=== PATIENT | female | born 1995 | race American Indian/Alaskan Native ===

== ENCOUNTER 2019-06-21 11:42 | Emergency (ER) | payer MEDICAID, OTHER ==
[2019-06-21 12:19] VITALS: BP 111/49
[2019-06-21] MEDS ORDERED: TETANUS,DIPH,PERTUSS(ACELL) VACCINE 0.5 ML SYRINGE IM ONE (12:20)
--- NOTE | 2019-06-21 12:24 | Emergency Department Report ---
{null, ED Laceration HPI - HPI Chief Complaint: Wound/Laceration Stated Complaint: LT HAND LAC/WORK Time Seen by Provider: 06/21/19 12:15 Occurred When: Today Location: Upper Extremity Severity: mild Tetanus Status: Not up to Date Laceration Symptoms: Yes Pain, No Foreign Body Sensation, No Numbness, No Weakness Other History: This is a 24-year-old female nontoxic, well in appearance with no signs of distress presents to the ED for laceration to left hand. Stated blood is under control. Denies any decreased ROM. Patient denies any fever, chills, headache, nausea, vomiting, chest pain or shortness of breathe. Denies any other symptoms or complaints. Denies any allergies or PMH. Denies being UTD with tetanus. ED Review of Systems ROS: Stated complaint: LT HAND LAC/WORK Other details as noted in HPI Constitutional: denies: chills, fever Eyes: denies: eye pain, eye discharge, vision change ENT: denies: ear pain, throat pain Respiratory: denies: cough, shortness of breath, wheezing Cardiovascular: denies: chest pain, palpitations Endocrine: no symptoms reported Gastrointestinal: denies: abdominal pain, nausea, diarrhea Genitourinary: denies: urgency, dysuria, discharge Musculoskeletal: denies: back pain, joint swelling, arthralgia Skin: denies: rash, lesions Neurological: denies: headache, weakness, paresthesias Psychiatric: denies: anxiety, depression Hematological/Lymphatic: denies: easy bleeding, easy bruising ED Past Medical Hx - Past Medical History Previous Medical History?: No Additional medical history: transfusion with - Surgical History Past Surgical History?: Yes Additional Surgical History: x2 - Social History Smoking Status: Never Smoker Substance Use Type: None - Medications Home Medications: Home Medications Medication Instructions Recorded Confirmed Last Taken Type Ketorolac [Toradol] 10 mg PO Q6H PRN #20 tablet 03/27/18 Unknown Rx methOCARBAMOL [Robaxin TAB] 500 mg PO Q6H #20 tablet 03/27/18 Unknown Rx Laceration Physical Exam - Exam General: Vital signs noted. No distress. Alert and acting appropriately. Wound Length (cm): 1 Laceration Location: Upper Extremity Laceration Exam: Yes Normal Distal CMS, No Foreign Body, No Exposed Tendon, Vessel, or Nerve, No Tendon Injury ED Course Vital Signs 06/21/19 12:17 Temperature 98.8 F Pulse Rate 77 Respiratory 20 Rate Blood Pressure 111/49 O2 Sat by Pulse 100 Oximetry - Reevaluation(s) Reevaluation #1: 06/21/19 12:24 Patient is speaking in full sentences with no signs of distress noted. - Laceration /Wound Repair Left Hand Wound Location: upper extremity Wound Length (cm): 1 Wound's Depth, Shape: superficial Wound Explored: clean Irrigated w/ Saline (ccs): 40 Betadine Prep?: Yes Wound Repaired With: Dermabond Layer Closure?: No Sterile Dressing Applied?: Yes Progress: Under sterile field, I used betadine to clean the area. I then used Dermond to proximate the laceration. Sterile dressing applied. Patient tolerated well. Bleeding under control. ED Medical Decision Making - Medical Decision Making 24-year-old female that presents with lac. Patient is stable and was examined by me. Dermabond applied. Patient tolerated well. Educated on care. Patient was instructed to Follow-up with a primary care doctor in 3-5 days or if symptoms worsen and continue return to emergency room as soon as possible. At time of discharge, the patient does not seem toxic or ill in appearance. No acute signs of distress noted. Patient agrees to discharge treatment plan of care. No further questions noted by the patient. Critical care attestation.: If time is entered above; I have spent that time in minutes in the direct care of this critically ill patient, excluding procedure time. ED Disposition Clinical Impression: Laceration Disposition: DC-01 TO HOME OR SELFCARE Is pt being admited?: No Does the pt Need Aspirin: No Condition: Stable Instructions: Laceration (ED), Skin Adhesive Care (ED) Additional Instructions: Follow-up with a primary care doctor in 3-5 days or if symptoms worsen and continue return to the emergency department as soon as possible. Referrals: PRIMARY MD NATTY [Referring] - 3-5 Days REGGIE TRACY MD [Staff Physician] - 3-5 Days [facility] [Outside] - 3-5 Days Forms: Work/School Release Form(ED) }
== END 2019-06-21 12:45 | disposition home or self-care (01) ==
LOC: ED 11:42
DX: S61.412A Laceration without foreign body of left hand, initial encounter (principal); Z79.899 Other long term (current) drug therapy; X58.XXXA Exposure to other specified factors, initial encounter; Y93.89 Activity, other specified; Y92.89 Other specified places as the place of occurrence of the external cause; Y99.8 Other external cause status
CPT/HCPCS: 90471; 90715

== ENCOUNTER 2021-01-05 11:31 | Emergency (ER) | payer MEDICAID ==
[2021-01-05 12:20] LABS: Hematocrit 35.2 % (30.3-42.9); Hemoglobin 12.6 gm/dl (10.1-14.3); Mean Corpuscular HGB Conc 36 % (30-34); Mean Corpuscular Volume 84 fl (79-97); Platelet Count 426 K/mm3 (140-440); Red Blood Count 4.19 M/mm3 (3.65-5.03); Red Cell Distribution Width 13.4 % (13.2-15.2)
[2021-01-05] MEDS ORDERED: SODIUM CHLORIDE 0.9% 1000 ML 1,000 ML IV ONE (12:31)
[2021-01-05] MEDS ORDERED: diphenhydrAMINE 50 MG/ML VIAL IV STA (12:31)
[2021-01-05] MEDS ORDERED: METOCLOPRAMIDE 10 MG/2 ML INJ IV STA (12:31)
--- NOTE | 2021-01-05 12:32 | Emergency Department Report ---
ED N/V/D HPI - General Chief complaint: Abdominal Pain Stated complaint: 17WKS PREG,ABDOM PAIN Time Seen by Provider: 01/05/21 12:28 Source: patient Mode of arrival: Wheelchair Limitations: No Limitations - History of Present Illness Initial comments: 25-year-old 17 weeks female presents emergency department complaint nausea and vomiting and a repetitive fashion not not responsive to her Phenergan tablets which she has previously had 6 for evaluation treatment options emerge department she reports no vaginal bleeding no no vaginal discharge does have a vague ache to the epigastric region that does radiate throughout her entire abdomen ports no fever, chills, sweats, hemoptysis, hematemesis, hematochezia 25-year-old 17-week MD complaint: nausea, vomiting -: Gradual Associated Abdominal Pain: Yes Location: diffuse (crampy pain ), epigastric (then radiates through out the abdomen) Radiation: none Severity: mild Quality: dull Consistency: constant Worsens with: none Associated Symptoms: nausea/vomiting - Related Data Previous Rx's Medication Instructions Recorded Last Taken Type Ketorolac [Toradol] 10 mg PO Q6H PRN #20 tablet 03/27/18 Unknown Rx methOCARBAMOL [Robaxin TAB] 500 mg PO Q6H #20 tablet 03/27/18 Unknown Rx Doxylamine Succinate/Vit B6 1 each PO TID #30 tablet. 01/05/21 Unknown Rx [Stewart Darling 10-10 mg Tablet] Allergies Allergy/AdvReac Type Severity Reaction Status Date / Time No Known Allergies Allergy Unverified 03/27/18 17:05 ED Review of Systems ROS: Stated complaint: 17WKS PREG,ABDOM PAIN Other details as noted in HPI Comment: All other systems reviewed and negative ED Past Medical Hx - Past Medical History Previous Medical History?: Yes Hx Asthma: Yes Additional medical history: transfusion with - Surgical History Past Surgical History?: Yes Additional Surgical History: x2 - Social History Smoking Status: Never Smoker Substance Use Type: None - Medications Home Medications: Home Medications Medication Instructions Recorded Confirmed Last Taken Type Ketorolac [Toradol] 10 mg PO Q6H PRN #20 tablet 03/27/18 Unknown Rx methOCARBAMOL [Robaxin TAB] 500 mg PO Q6H #20 tablet 03/27/18 Unknown Rx Doxylamine Succinate/Vit B6 1 each PO TID #30 tablet. 01/05/21 Unknown Rx [Stewart Darling 10-10 mg Tablet] ED Physical Exam - General Limitations: No Limitations General appearance: alert, in no apparent distress - Head Head exam: Present: atraumatic, normocephalic - Eye Eye exam: Present: normal appearance, PERRL, EOMI - ENT ENT exam: Present: mucous membranes moist - Neck Neck exam: Present: normal inspection - Respiratory Respiratory exam: Present: normal lung sounds bilaterally. Absent: respiratory distress - Cardiovascular Cardiovascular Exam: Present: regular rate, normal rhythm. Absent: systolic murmur, diastolic murmur, rubs, gallop - GI/Abdominal GI/Abdominal exam: Present: soft, tenderness (Mild discomfort to the epigastric region with palpation. Attempting), normal bowel sounds - Extremities Exam Extremities exam: Present: normal inspection - Back Exam Back exam: Present: normal inspection - Neurological Exam Neurological exam: Present: alert, oriented X3 - Psychiatric Psychiatric exam: Present: normal affect, normal mood - Skin Skin exam: Present: warm, dry, intact, normal color. Absent: rash ED Medical Decision Making - Lab Data Result diagrams: 01/05/21 12:10 01/05/21 12:10 - Medical Decision Making 25-year-old 17-week female presents emergency department complaining of nausea and vomiting without diarrhea. The patient is overall well-appearing and suspected to have hyperemesis gravidarum. Given the history of examination he does not appear to be an emergency cause for the symptoms such as small bowel obstruction, coronary syndrome, bowel ischemia, DKA, pancreatitis, appendicitis, acute abdomen no emergent problem. Patient was treated with Reglan, Benadryl, fluids as well as vitamin D6. After treatment patient is feeling much better tolerating p.o. fluids shows no signs of dehydration Critical care attestation.: If time is entered above; I have spent that time in minutes in the direct care of this critically ill patient, excluding procedure time. ED Disposition Clinical Impression: Hyperemesis gravidarum Disposition: HOME / SELF CARE / HOMELESS Is pt being admited?: No Does the pt Need Aspirin: No Condition: Stable Instructions: Hyperemesis Gravidarum, Abdominal Pain (ED) Prescriptions: Doxylamine Succinate/Vit B6 [[place] Dr 10-10 mg Tablet] 1 each PO TID #30 tablet.dr Referrals: [facility] [Provider Group] - 3-5 Days [facility], [Primary Care Provider] - 3-5 Days
[2021-01-05 12:45] LABS: Alanine Aminotransferase 18 units/L (7-56); Albumin 4.2 g/dL (3.9-5); Blood Urea Nitrogen 7 mg/dL (7-17); Hemolysis Index 0
[2021-01-05 12:51] LABS: BUN/Creatinine Ratio 12
[2021-01-05 12:59] LABS: Bilirubin,Urine SM (Negative); Blood,Urine NEG (Negative); Color,Urine Amber (Yellow); Mucus,Urine 3+ /HPF
[2021-01-05] MEDS ORDERED: PYRIDOXINE 50 MG TAB PO SCH (13:00)
[2021-01-05 13:43] LABS: Basophils # (Auto) 0.1 K/mm3 (0.0-0.1); Basophils % (Auto) 0.7 % (0.0-1.8); Eosinophils # (Auto) 0.1 K/mm3 (0.0-0.4); Eosinophils % (Auto) 0.5 % (0.0-4.3); Lymphocytes # (Auto) 2.4 K/mm3 (1.2-5.4); Lymphocytes % (Auto) 19.9 % (13.4-35.0); Monocytes # (Auto) 0.7 K/mm3 (0.0-0.8); Monocytes % (Auto) 5.6 % (0.0-7.3)
[2021-01-05 13:58] LABS: Ictotest,Urine 1+ (Negative)
[2021-01-05 17:15] VITALS: BP 111/72
== END 2021-01-05 17:15 | disposition home or self-care (01) ==
LOC: ED 11:31
DX: O21.0 Mild hyperemesis gravidarum (principal); O99.519 Diseases of the respiratory system complicating pregnancy, unspecified trimester; Z3A.17 17 weeks gestation of pregnancy; Z98.890 Other specified postprocedural states
CPT/HCPCS: 36415; 80053; 81001; 84702; 85025; 96361; 96374; 96375; 99283; J1200; J2765; J7030

== ENCOUNTER 2021-02-24 13:49 | Outpatient (CLI) | payer MEDICAID ==
[2021-02-24] MEDS ORDERED: LACTATED RINGERS 500 ML IV ONE (14:34)
[2021-02-24 14:55] VITALS: BP 106/67
[2021-02-24 14:59] LABS: Bilirubin,Urine NEG (Negative); Blood,Urine NEG (Negative); Color,Urine Straw (Yellow); Protein,Urine <15 mg/dL mg/dL (Negative); Urobilinogen,Urine < 2.0 mg/dL (<2.0)
[2021-02-24 15:21] LABS: RBC,Urine > 1.0 /HPF (0.0-6.0); WBC,Urine > 1.0 /HPF (0.0-6.0)
[2021-02-24] MEDS ORDERED: ACETAMINOPHEN 500 MG TAB PO NR (17:00)
== END 2021-02-24 16:30 | disposition left against medical advice (07) ==
LOC: TRG 13:49 → APU 13:50 → TRG 16:30
PROVIDERS: ATTEND Obstetrics & Gynecology
DX: O26.892 Other specified pregnancy related conditions, second trimester (principal); M54.9 Dorsalgia, unspecified; Z3A.24 24 weeks gestation of pregnancy
CPT/HCPCS: 59025; 81001; 96360; 96361